=== PATIENT | male | born 1945 | race Caucasian/White ===

== ENCOUNTER → 2019-02-22 14:00 | Outpatient (CLI) | payer MEDICARE, OTHER, SELFPAY ==
[2019-02-22 14:12] LABS: Bacteria Urine None Seen; RBC Urine None Seen (0-5/HPF); WBC Urine None Seen (0-5/HPF)
[2019-02-22 14:57] LABS: Hemoglobin A1C% w Est Avg Glu 5.5 % (4.0-6.0)
[2019-02-22 15:16] LABS: Appearance Urine UA CLEAR; Bilirubin Urine UA NEGATIVE (NEGATIVE); Color Urine UA YELLOW; Glucose Urine UA NEGATIVE (Negative); Ketones Urine UA NEGATIVE (NEGATIVE); Leukocyte Esterase Urine UA NEGATIVE (NEGATIVE); Nitrite Urine UA NEGATIVE (Negative); Occult Blood Urine UA NEGATIVE (Negative); Protein Urine UA NEGATIVE (Negative); Specific Gravity Urine UA 1.015 (1.000-1.035); Urobilinogen Urine UA 0.2 E.U./dL (0.2); pH Urine UA 7.5 (4.5-8.0)
[2019-02-22 15:25] LABS: Culture Indicated Urine Cult Not Indicated; Urine Comments Microscopic Normal
== END ==
PROVIDERS: Visit Provider Orthopaedic Surgery
DX: Z01.818 Encounter for other preprocedural examination (principal); Z01.812 Encounter for preprocedural laboratory examination; N39.9 Disorder of urinary system, unspecified; Z13.1 Encounter for screening for diabetes mellitus; R73.9 Hyperglycemia, unspecified
CPT/HCPCS: 36415; 81001; 83036

== ENCOUNTER 2019-04-06 05:59 | Inpatient (IN) | payer MEDICARE, OTHER, SELFPAY ==
[2019-03-23 09:57] VITALS: BMI 31.1
[2019-04-06] VITALS (17 sets, daily range): BP systolic 137–187; BP diastolic 70–94; PULSE 62–90; RESP 9–17; TEMP 36.3–37.1; O2SAT 93–99; BMI 31.8
--- NOTE | 2019-04-06 06:41 | DI.RAD.S_ITS ---
PROCEDURE: XR KNEE RT 1TO2V INDICATIONS: post op right TKA TECHNIQUE: 2 view(s) of the knee acquired. COMPARISON: None. FINDINGS: Bones: Patient is status post knee joint arthroplasty. Hardware components are in expected positions. Visualized bony structures are intact. Soft tissues: Overlying postoperative changes are noted. IMPRESSION: Expected postsurgical change for right knee arthroplasty. Dictated by: Terri Arciniega MD, PhD on 04/06/2019 at 14:43 Approved by: Terri Arciniega MD, PhD on 04/06/2019 at 14:44
[2019-04-06] MEDS: CELECOXIB 200 MG CAPSULE PO (07:03)
[2019-04-06] MEDS: ACETAMINOPHEN 325 MG TABLET 975 MG PO (07:03)
[2019-04-06] MEDS: VANCOMYCIN 1,000 MG/200 ML PIGGYBACK 200 MG IV (07:03)
[2019-04-06] MEDS: PREGABALIN 75 MG CAPSULE PO (07:03)
[2019-04-06] MEDS: LACTATED RINGERS 1,000 ML 42 ML IV ×2 (07:10→08:43)
--- NOTE | 2019-04-06 07:37 | PM.PREOP ---
Pre-operative Note Interval Note History & Physical reviewed/Exam performed by Physician: Yes Changes to H&P: No
--- NOTE | 2019-04-06 07:37 | PM.OP.1 ---
Operative Date/Time/Diagnoses Date of procedure: 04/06/19 Time of procedure: 07:59 Pre-op diagnosis: Right knee osteoarthritis with a failed right knee medial compartment arthroplasty Post-op diagnosis: same Procedure & Clinicians Procedure: Revision right total knee arthroplasty Same procedure as scheduled: Yes Indications: The patient has had progressively worsening right knee pain with radiographic changes consistent with progressive patellofemoral and lateral compartment arthritis. He has a history of right knee medial compartment arthroplasty. Non-operative management has failed and the patient has requested total knee revision. The risks, benefits and alternatives to surgery were discussed with the patient prior to proceeding. Risks discussed included, but were not limited to, failure to relieve pain, stiffness, infection, nerve damage, deep venous thrombosis, pulmonary embolism, stroke, coma, heart attack, permanent paralysis and , as well as the potential need for eventual revision of the prosthetic. Surgeon: Shayy Morfin Telescope Operator: Yariel Velazquez Anesthesia Type: General and Spinal Operative Notes Findings: Severe right knee osteoarthritis on the lateral and patellofemoral joint, medial Uni no evidence of loosening, adequate bone, good stability Closure Type: primary Specimen(s): none sent Prosthetic devices, grafts, tissues, transplants, or devices: Morfin and Nephew Journey BCS 2 size 6 femur, size 6 tibia, +10 poly, 35 oval patella Applied: drain(s) Estimated Blood Loss (mL): 250 Blood products transfused: none Tourniquet time (min): 17 Procedure in detail: The patient was seen in the pre-operative area, where the patient identified the right knee as the operative site and this was marked with my initials. The patient received pre-operative antibiotics, and was taken to the operating room and placed on the operative table in the supine position. After satisfactory anesthesia, a realtime captioner out was performed. The right leg was encircled with a tourniquet about the proximal thigh, and the leg was prepared from the toes to the tourniquet with ChloroPrep in the usual fashion and draped through sterile drapes. The leg was elevated and exsanguinated with Eschmark bandage and the tourniquet inflated to [250] mmHg pressure. The knee was approached through an approximately 20 cm incision centered over the patella and carried into the knee through a medial parapatellar arthrotomy. A portion of the lateral meniscus was resected. Soft tissue was carefully mobilized around the patella the patella was measured with a caliper. Bone was resected from the patella and the patellar height was reconstituted with up an appropriate sized patellar component. A cover was then placed on the patella. A small amount of additional lateral meniscus was resected. The polyethylene was carefully removed from the medial complex unicompartment arthroplasty. Soft tissue was mobilized around the medial compartment arthroplasty and hand osteotomes were used to remove a portion of the cement. The distal femur was cut at 5?. A [+2] cut was used. A combination of the oscillating saw as well as multiple small hand tools and osteotomes was then used to carefully remove the medial femoral component. It looked like an appropriate distal femoral cut and the cut was made without difficulty. Oscillating saw was used to remove the tibial component which was carefully tamped out after did loosened from the proximal media tibia. An extramedullary guide was used for the tibial cut. 10 mm was resected off the least affected side.The tibia was prepared. The rotation was assessed. The patient was placed in extension residual medial and lateral meniscus as well as any residual bone was carefully resected. The tibial defect was assessed the medial cut was a skim cut off of the proximal medial tibia. There was not a large defect in the tibia and there was reasonable quality medial tibial bone. Hemostasis was achieved especially posteriorly. Additional local was injected into the posterior capsule. The extension gap was assessed and additional releases for gap balancing were performed as necessary. It was checked with the gap grounds/maintenance specialist. The rotation was assessed and the rotation was set based on gap balancing external rotation with a Quentin placed along the posterior medial femoral condyle to make up for the deficient portion of the posterior medial femoral condyle. Additional external rotation of about 4? was set. The femur measured a 6. Appropriate size femoral guide was placed on the distal femur and finishing cuts were made. There was no evidence of notching. The anterior, posterior and chamfer cuts were then made. The posterior osteophytes and soft tissues were then removed. The posterior capsule was injected with part of a mixture of 60 ml 0.25% Marcaine mixed with 20 ml Exparel for post operative pain control. The remainder of this mixture was injected into the capsule and subcutaneous tissues during cement curing.l tibial and femoral components were then placed and the knee placed through a range of motion. Range of motion was [0-130], with good stability throughout the range. The trials were then removed, and the tibia was finished. There was reasonable quality proximal tibia and I placed several additional drill holes in the sclerotic proximal medial tibial bone. All soft tissue was carefully curetted free from the underlying bone. There was good quality bone and it did not appear that either in extension or and augment was indicated. The bone was prepared with pulsatile lavage, and dried with a sponge. Cement was applied and the final prosthetics placed. Excess cement was removed during and after cement curing. A brief Betadine soak was performed. After confirming there was no extruded cement posteriorly, the final tibial insert was placed. The knee was copiously irrigated and the tourniquet deflated. Hemostasis was obtained with the Bovie. A drain was placed and brought out superolaterally. The capsule was closed with interrupted Vicryl suture. The subcutaneous layer was closed with barbed sutures, and the skin with a running 3-0 V-Lock suture and Surgical glue. An Aquacel Ag dressing was applied and the patient was taken to recovery having tolerated the procedure well. Complications: none Post-operative Condition: stable Disposition: Acute Care Plan for aftercare: The patient will be maintained on a standard total knee replacement protocol with weight bearing as tolerated. The patient will receive aspirin and sequential compression devices for DVT prophylaxis. The patient will be discharged home when safe for the home environment.
[2019-04-06] MEDS: CEFAZOLIN 2 GM/100 ML FROZ.PIGGY IV (08:15)
[2019-04-06] MEDS: TRANEXAMIC ACID 1,000 MG VIAL 2000 MG INJ ×2 (08:49→10:49)
[2019-04-06] MEDS: BUPIVACAINE 0.25% W/ EPI (PF) 10 ML VIAL 60 ML INJ (08:49)
[2019-04-06] MEDS: BUPIVACAINE LIPOSOME 266 MG/20 ML VIAL INJ (08:50)
--- NOTE | 2019-04-06 08:59 | SUR.OPER ---
Supine on padded OR bed. Pillow under head, arms secured on padded armboards <90 degree abduction. Safety belt across torso. Non-operative leg secured with tape over blanket over lower leg. Operative leg secured in DeMayo/Herminio positioner. Foam padded brace at thigh of operative leg.
[2019-04-06] MEDS: fentaNYL 100 MCG/2 ML INJ IV ×2 (11:13→11:20)
[2019-04-06] MEDS: HYDROMORPHONE 2 MG INJ IV ×2 (11:14→11:21)
--- NOTE | 2019-04-06 11:35 | SUR.PHASEI ---
REPORT CALLED TO DAX PATEL ON ACUTE CARE FLOOR. PT IN STABLE CONDITION, VSS. DRSG OBSERVED TO BE C/D/I. HEMAVAC REMAINS CLAMPED AT THIS TIME. PT TOLERATING ICE CHIPS WITHOUT ANY DIFFICULTLY. PT REPORTS PAIN IS TOLERABLE AT THIS TIME AND RATING PAIN 5/10 AT SURGICAL SITE.
[2019-04-06] MEDS: HYDRALAZINE 20 MG/ML VIAL 5 MG IV (11:46)
--- NOTE | 2019-04-06 11:57 | SUR.PHASEI ---
BEDSIDE REPORT GIVEN TO DAX SHORE AT THIS TIME. TRANSFERRED CARE OF PT TO DAX SHORE AT THIS TIME. PT IN STABLE CONDITION.
[2019-04-06] MEDS: OXYCODONE IR 5 MG TABLET PO ×2 (13:21→16:29)
[2019-04-06] MEDS: IBUPROFEN 400 MG TABLET PO (13:22)
[2019-04-06] MEDS: LACTATED RINGERS 1,000 ML 125 ML IV (13:51)
--- NOTE | 2019-04-06 13:53 | PC.NURSE ---
Pt to room 216 via bed from PACU. Pt oriented to room, call light, bed controls, and tv controls. Bed alarm on for safety. Pt agrees to call for assistance as needed. SCD's on and running.
--- NOTE | 2019-04-06 13:54 | SUR.PHASEI ---
Late note: Care assumed from Kimberly. pt's BP normalized after meds given by Kimberly. Pt tolerated juice. Pt transported up to room on room air by Adriana VERDUZCO and technology analyst. Pt left in stable condition.
--- NOTE | 2019-04-06 14:20 | PT.IIE ---
Current Diagnoses Unilateral primary osteoarthritis, right knee (04/06/19) Surgery Performed Operation Date: 04/06/19 07:45 Actual Procedures p Revision Medial Uni to Total Knee Arthroplasty(Right) - Shayy Morfin MD Surgical History (Last Updated 03/23/19 @ 10:42 by Nirmala Salinas, RN) H/O vasectomy (Acute) History of arthroplasty of right knee (Acute 02/15/14) History of bilateral cataract extraction (Acute) Hx of sinus surgery (Acute) Hx of tonsillectomy (Acute) Medical History (Last Updated 03/23/19 @ 10:41 by Nirmala Salinas, DAX) Borderline diabetic (Acute) Easy bruisability (Acute) GERD (gastroesophageal reflux disease) (Acute) History of coronary angiogram (Acute ~01/2019) HLD (hyperlipidemia) (Acute) HTN (hypertension) (Acute) Kidney stones (Acute ~2014) JESSIE on CPAP (Acute) Osteoarthritis (Acute) Pulmonary nodules (Acute 2014) SCC (squamous cell carcinoma) (Acute) Thinning of skin (Acute) Physical Therapy Inpatient Evaluation/Re-Eval M1 PT/OT-IP Prior Functional Status Start: 04/06/19 15:28 Freq: NEEDED Status: Active Protocol: Document 04/06/19 14:20 AB (Rec: 04/06/19 16:02 AB [email or web address]) Medical Review Prior Functional Status Medical History Reviewed Yes Communication able to make needs known Mobility and Gait pt stated that he is independent with all mobilities and ambulation without AD Social History Household Members spouse Living Arrangements House Number of Floors (Floors) Two Floors Number of Stairs To Enter/Railing? has no steps to enter from the garage and pt stays on the main level of the house Home Environment High Toilet,Walk in Shower, Built-In Shower Seat Home Equipment Hand Held Shower,Grab Bars Near Toilet,Grab Bars In Shower Employment Status Retired Additional Social History Comment pt has a standard walker and an adjustable bed M2 PT-IP Current Condition Start: 04/06/19 15:28 Freq: NEEDED Status: Active Protocol: Document 04/06/19 14:20 AB (Rec: 04/06/19 16:02 AB [email or web address]) Physical Therapy Current Condition Current Condition Evaluation Date 04/06/19 Treatment Diagnosis s/p R TKA; difficulty in walking Onset Date 04/06/2019 Weight Bearing Status Weight Bearing Status Weight Bear as Tolerated Allowed Weight Bearing Amount (enter % RLE WBAT or #) (%) M3 PT-IP Subjective Start: 04/06/19 15:28 Freq: NEEDED Status: Active Protocol: Document 04/06/19 14:20 AB (Rec: 04/06/19 16:02 AB [email or web address]) Subjective Physical Therapy Visit Type Type Initial Evaluation Visit Start Time 14:20 Visit Stop Time 15:29 Total Visit Minutes 69 Number of BRANCH CONTROLLER Visits 0 Physical Therapy Visit Comments Patient Comments pt agreeable to do PT Therapy Pain Assessment Pain When Pain Assessed At Rest Pain Present Pain Present Pain Reported Location right knee Intensity 4 Scale Used increases to 10/10 with weight bearing Pain Management Techniques Apply Cold,Distraction,Timing of Activity with Medications M4 PT-IP Mobility and Gait Start: 04/06/19 15:28 Freq: NEEDED Status: Active Protocol: Document 04/06/19 14:20 AB (Rec: 04/06/19 16:02 AB [email or web address]) PT-Bed Mobility Assessment Supine to Sit Supine to Sit Standby Assistance Sit to Supine Sit to Supine Standby Assistance Scooting Scooting to Edge of Bed Standby Assistance Scooting Up and Down in Bed Standby Assistance PT-Transfer Assessment Sit to and From Stand Sit to and from Stand Contact Guard Assistance,1 Person Assistance,Use of Upper Extremities Equipment Transfer Assistive Device Gait Belt,Front Wheeled Walker Orthotic/Prosthetic Devices or Brace: No Transfers Transfer Destination Toilet Transfer Technique ambulated using FWW Transfer Ability Level of Assist Standby Assistance,Contact Guard Assistance,1 Person Assistance Comments Mobility Comments BP supine: 136/70. pt requesting use the toilet. completed bed mobility supine to sit SBA. pt was able to sit on EOB SBA. pt completed sit to stand CGA and ambulated to the toilet CGA. pt was able to stand using FWW for support CGA while completing toileting. pt ambulated to the sink and was able to maintain standing using FWW for support while completing handwashing. pt ambulated to the EOB SBA to CGA using FWW. BP checked: 143/77. pt agreed to do more ambulation. ambulated in room using FWW SBA ~ 15 ft. nurse cane in to empty pt's drain and pt sat on EOB. pt does not have a FWW and has standard walker. walker adjusted and pt agreed to ambulate more using his standard walker. pt completed ambulation using standard walker SBA ~ 80 ft. pt went back to bed. completed sit to supine SBA. positioned pt in bed. call light and table placed within reach. Gait Assessment Gait Gait Assistance Required: Standby Assistance,Contact Guard Assist,1 Person Assist Distance (Feet) 80 Able to Maintain Weight Bearing Status Yes During Gait Assistive Devices Assistive Device Gait Belt,Front Wheeled Walker Orthotic/Prosthetic Devices or Brace: No Factors Limiting Gait Function Factors Limiting Gait Function Pain,Poor Balance,Poor Safety Awareness Comments Gait Comments pt ambulated in room using FWW initially with CGA but afterwards SBA. ambulated in the hallway using standard walker SBA. pls refer to mobility section for details. PT-Balance Assessment Sitting Balance and Reactions Static Sitting Balance Ability Normal Dynamic Sitting Balance Ability Normal Standing Balance and Reactions Static Standing Balance Ability Fair Dynamic Standing Balance Ability Fair Device Used FWW/standard FWW M5 PT-IP Objective Assessments Start: 04/06/19 15:28 Freq: NEEDED Status: Active Protocol: Document 04/06/19 14:20 AB (Rec: 04/06/19 16:02 AB [email or web address]) Orientation Orientation/Cognition Level of Alertness Alert Orientation Name,Age,Birthday,Month,Date, Year,Day of Week,Place, Situation Language Function Ability No Deficits Noted Safety Awareness Understands Safety Issues Memory Description No Deficits Noted Gross Range of Motion Lower Extremity ROM Assessment Right Impaired Impairments R knee flexion: ~ 70 deg R knee extension: lacking ~ 25 deg to neutral Strength Lower Extremity Strength Assessment Right Impaired Hip 4-/5 Knee 3+/5 Sensation Assessment Sensation Gross Sensation WNL Muscle Tone Muscle Tone WNL Yes M6 PT-IP Treatment Start: 04/06/19 15:28 Freq: NEEDED Status: Active Protocol: Document 04/06/19 14:20 AB (Rec: 04/06/19 16:02 AB [email or web address]) Physical Therapy Treatment Exercises Exercises Heel Slides Education Education Provided Precautions,Weight Bearing Status,Post-Op Packet,Safety M7 PT-IP Assessment and Plan Start: 04/06/19 15:28 Freq: NEEDED Status: Active Protocol: Document 04/06/19 14:20 AB (Rec: 04/06/19 16:02 AB [email or web address]) PT Summary Assessment and Plan Potential Rehabilitation Potential Good Status of Condition at Evaluation Stable Summary Impairments Pain,ROM,Strength,Balance, Coordination,Sensation,Tone, Cognition,Bed Mobility, Transfers,Gait,Activity Tolerance Assessment Summary pt requiring SBA to CGA using standard walker and plans to go home with spouse to assist him. pt is set up for outpt PT. pt may go home when medically stable. Goals Bed Mobility Goal Independent Transfer Goal Independent Gait Goal Independent Gait Distance 200 Other Goals increase ambulation using standard walker ~ 200 ft mod I Days to Meet Goals 3 Frequency of Treatment Frequency Of Treatment Twice a Day Treatment Plan Physical Therapy Treatment Plan Bed Mobility Training,Transfer Training,Gait Training, Therapeutic Exercise,Balance Retraining,Post Op Education, Discharge Planning,Hot or Cold Pack,Neuromuscular Re-ed, Coordination Retraining,Manual Therapy Other Recommendations and Next Treatment ambulation Focus Recommendations To Nursing Amount of Assist Needed 1 Person Assist Discharge Recommendations PT Discharge Recommendations Home with Assistance, Outpatient PT
--- NOTE | 2019-04-06 14:59 | PC.NURSE ---
Day shift- Drain was clamped for about 2 hours, unclamped at 1315. 90ml output from HV, sangenous output. Pt c/o pain in leg, medicated with oxy and ibuprofen as ordered and available. Working with PT. may want to d/c home tonight.
--- NOTE | 2019-04-06 16:49 | PC.NURSE ---
Lety shift discharge note: Patient awake, alert, and pleasant. VSS and afebrile. Up out of bed to BR, with FWW. Voiding. Hemovac discontinued. Discharge home as ordered, home with via private vehicle. Discussed importance of F/U with Dr. Morfin, PT therapy, home activity, dressing care, and new medications. Patient verbalized understanding of instructions.
--- NOTE | 2019-04-12 08:42 | CM.IDA ---
Discharge Planning/Care Management CM Discharge Assessment Start: 04/12/19 08:37 Freq: Status: Discharge Protocol: Document 04/12/19 08:37 RUSH (Rec: 04/12/19 08:42 RUSH [id number]) Discharge Planning Assessment Assigned Social Media Project Manager RJ Rosenthal DPOA/Assigned Designee Name Padmaja () Contact Information [phone] Advance Directives? Yes Advance Directives on File No History Provided By Patient,Medical Record Prior Living Arrangements House Household Members spouse Type of transporation used prior to Drives own vehicle admit Independent with ADL's Yes Is patient alert and oriented? Yes Patient/Family Preference OP PT Therapy Barriers to Discharge No Comment Pt is POD#1 from uni knee surgery w/Dr Morfin. PCP: Charisse Payer: [facility]/ [facility] Reviewed chart. Pt has a DC order in and PT has cleared pt for his expected DCP of returning home w/spouse to assist. No barriers identified to safe DC home w/family today. This EARRINGS FABRICATOR will remain available in case DC Needs or concerns arise. RJ Navas Discharge Plan Home Transportation Arrangement Family Referrals Initiated None needed Review Status In Process
== END 2019-04-06 16:53 | disposition home or self-care (01) | DRG 467 ==
PROVIDERS: Admitting Provider Orthopaedic Surgery; Visit Provider Orthopaedic Surgery
PROC: 0SRC0J9 Replacement of Right Knee Joint with Synthetic Substitute, Cemented, Open Approach (ICD-10-PCS; principal; 2019-04-06 07:45)
DX: M17.11 Unilateral primary osteoarthritis, right knee (principal); T84.092A Other mechanical complication of internal right knee prosthesis, initial encounter; G47.33 Obstructive sleep apnea (adult) (pediatric); I10 Essential (primary) hypertension; K21.9 Gastro-esophageal reflux disease without esophagitis; Z87.891 Personal history of nicotine dependence; Z96.651 Presence of right artificial knee joint
CPT/HCPCS: 73560; 87070; 87075; 87176; 87205; 97161; 97535; C1776; C9290; J0360; J0690; J1100; J1170; J2250; J2274; J2405; J2704; J3010

== ENCOUNTER → 2020-02-21 09:34 | Outpatient (CLI) | payer MEDICARE, OTHER, SELFPAY ==
[2019-04-06 13:30] VITALS: BMI 31.8
[2020-02-21 09:45] LABS: Bacteria Urine None Seen; RBC Urine None Seen (0-5/HPF)
[2020-02-21 10:24] LABS: Add Manual Diff / Slide Review NO; Basophils Absolute Auto 0 /uL (0-100); Basophils Percent Auto 0.4 % (0-2); Eosinophils Absolute Auto 100 /uL (0-450); Eosinophils Percent Auto 1.6 % (2-4); Hematocrit 45.2 % (41-53); Hemoglobin 14.9 g/dL (13.5-17.5); Lymphocytes Absolute Auto 1300 /uL (1100-4500); Lymphocytes Percent Auto 24.4 % (25-40); Mean Corpuscular HGB Conc 32.8 % (30-36); Mean Corpuscular Hemoglobin 31.4 PG (26-34); Mean Corpuscular Volume 95.6 fL (80-100); Monocytes Absolute Auto 600 /uL (0-900); Monocytes Percent Auto 10.8 % (3-14); Neutrophils Absolute Auto 3200 /uL (1500-7000); Neutrophils Percent Auto 62.8 % (50-75); Platelet Count 203 X10^3/uL (150-400); Red Blood Cell Count 4.73 X10^6/uL (4.5-5.9); Red Cell Distribution Width 13.5 % (11.6-14.8); White Blood Cell Count 5.1 X10^3/uL (4.5-11.0)
[2020-02-21 10:26] LABS: Hemoglobin A1C% w Est Avg Glu 6.1 % (4.0-6.0)
[2020-02-21 10:36] LABS: Appearance Urine UA CLEAR; Bilirubin Urine UA NEGATIVE (NEGATIVE); Color Urine UA YELLOW; Glucose Urine UA NEGATIVE (Negative); Ketones Urine UA NEGATIVE (NEGATIVE); Leukocyte Esterase Urine UA NEGATIVE (NEGATIVE); Nitrite Urine UA NEGATIVE (Negative); Occult Blood Urine UA NEGATIVE (Negative); Protein Urine UA NEGATIVE (Negative); Specific Gravity Urine UA 1.025 (1.000-1.035); Urobilinogen Urine UA 0.2 E.U./dL (0.2)
[2020-02-21 10:47] LABS: Culture Indicated Urine Specimen Cultured; Mucus Urine 3+ (Negative); WBC Urine 5-10/HPF (0-5/HPF)
[2020-02-21 11:05] LABS: BUN Creatinine Ratio 26.3 (6-22); Blood Urea Nitrogen 26 mg/dL (9-20); Calcium 9.6 mg/dL (8.4-10.2); Carbon Dioxide 31 mmol/L (22-32); Chloride 102 mmol/L (98-107); Estimated Glomerular Filt Rate > 60.0 mL/min (>60); Glucose 100 mg/dL (80-110); HEMOLYSIS < 15 (0-50); Potassium 4.5 mmol/L (3.4-5.1); Sodium 138 mmol/L (137-145)
== END ==
PROVIDERS: Referring Provider Orthopaedic Surgery; Visit Provider Orthopaedic Surgery
DX: Z01.818 Encounter for other preprocedural examination (principal); R73.9 Hyperglycemia, unspecified; Z01.812 Encounter for preprocedural laboratory examination; N39.0 Urinary tract infection, site not specified
CPT/HCPCS: 36415; 80048; 81001; 83036; 85025; 87086; 93005; 93010

== ENCOUNTER → 2020-03-18 09:57 | Outpatient (CLI) | payer MEDICARE, OTHER, SELFPAY ==
[2019-04-06 13:30] VITALS: BMI 31.8
[2020-03-18 11:26] LABS: COVID19 -Nasal RAPID Negative (Negative)
== END ==
PROVIDERS: Visit Provider Physician Assistant
DX: Z01.812 Encounter for preprocedural laboratory examination (principal); Z20.822 Contact with and (suspected) exposure to COVID-19
CPT/HCPCS: 87635; C9803

== ENCOUNTER 2020-03-19 06:14 | Day surgery (SDC) | payer MEDICARE, OTHER, SELFPAY ==
[2019-04-06 13:30] VITALS: BMI 31.8
[2020-03-14 13:58] VITALS: BMI 33.7
[2020-03-19] VITALS (8 sets, daily range): BP systolic 144–165; BP diastolic 71–89; PULSE 63–80; RESP 12–20; TEMP 36.3–37; O2SAT 92–99; BMI 32.1
--- NOTE | 2020-03-19 | DI.RAD.S_ITS ---
PROCEDURE: XR KNEE LT 1TO2V INDICATIONS: POST-OP TOTAL LEFT KNEE TECHNIQUE: 2 view(s) of the knee acquired. COMPARISON: [facility] ERICA Schneider, XR KNEE ARTHRITIC SERIES BI, 01/03/2020, 8:44. [facility] [place], CR, XR KNEE ARTHRITIC SERIES RT, 04/20/2019, 16:19. FINDINGS: Bones: Patient is status post knee joint arthroplasty. Hardware components are in expected positions. Visualized bony structures are intact. Soft tissues: Overlying postoperative changes are noted. IMPRESSION: Total knee arthroplasty with prosthesis in anatomic alignment. Dictated by: Avril Sheehan M.D. on 03/19/2020 at 17:12 Approved by: Avril Sheehan M.D. on 03/19/2020 at 17:12
[2020-03-19] MEDS: LACTATED RINGERS 1,000 ML 42 ML IV ×2 (07:00→10:39)
--- NOTE | 2020-03-19 07:45 | PM.PREOP ---
Pre-operative Note Interval Note History & Physical reviewed/Exam performed by Physician: Yes Changes to H&P: No
--- NOTE | 2020-03-19 07:47 | P.OP_ITS ---
Operative Date/Time/Diagnoses Date of procedure: 03/19/20 Time of procedure: 07:59 Pre-op diagnosis: left knee OA Post-op diagnosis: same Procedure & Clinicians Procedure: left total knee Same procedure as scheduled: Yes Indications: The patient has had progressively worsening left knee pain with radiographic changes consistent with arthritis. Non-operative management has failed and the patient has requested total knee replacement. The risks, benefits and alternatives to surgery were discussed with the patient prior to proceeding. Risks discussed included, but were not limited to, failure to relieve pain, stiffness, infection, nerve damage, deep venous thrombosis, pulmonary embolism, stroke, coma, heart attack, permanent paralysis and , as well as the potential need for eventual revision of the prosthetic. Surgeon: Shayy Morfin Groover Operator: Marissa Quinones Anesthesia Type: General Operative Notes Findings: Severe left knee osteoarthritis, good stability Closure Type: primary Specimen(s): none sent Prosthetic devices, grafts, tissues, transplants, or devices: Morfin and nephew BCS 2 size 6 femur, size 6 tibia, +9 poly, 35 oval patella Applied: drain(s) Estimated Blood Loss (mL): 200 Blood products transfused: none Tourniquet time (min): 92 Procedure in detail: The patient was seen in the pre-operative area, where the patient identified the left knee as the operative site and this was marked with my initials. The patient received pre-operative antibiotics, and was taken to the operating room and placed on the operative table in the supine position. After satisfactory anesthesia, a multimedia production assistant out was performed. The left leg was encircled with a tourniquet about the proximal thigh, and the leg was prepared from the toes to the tourniquet with ChloroPrep in the usual fashion and draped through sterile drapes. The leg was elevated and exsanguinated with Eschmark bandage and the tourniquet inflated to [250] mmHg pressure. The knee was approached through an approximately 18 cm incision centered over the patella and carried into the knee through a medial parapatellar arthrotomy. A portion of the medial and lateral meniscus was resected. Soft tissue was carefully mobilized around the patella the patella was measured with a caliper. Bone was resected from the patella and the patellar height was reconstituted with up an appropriate sized patellar component. A cover was then placed on the patella. A small amount of additional medial and lateral meniscus was resected. The distal femur was cut at 5?. A [+2] cut was used. It looked like an appropriate distal femoral cut and the cut was made without difficulty. An extramedullary guide was used for the tibial cut. 10 mm was resected off the least affected side.The tibia was prepared. The rotation was assessed. The patient was placed in extension residual medial and lateral meniscus as well as any residual bone was carefully resected. [No] additional tibia was resected. Hemostasis was achieved especially posteriorly. Additional local was injected into the posterior capsule. The extension gap was assessed and additional releases for gap balancing were performed as necessary. It was checked with the gap engraver pantograph. The femoral component was trial was placed and the notch was finished. The rotation was assessed and the appropriate size femoral guide was placed on the distal femur and finishing cuts were made. There was no evidence of notching. The anterior, posterior and chamfer cuts were then made. The posterior osteophytes and soft tissues were then removed. The posterior capsule was injected with part of a mixture of 60 ml 0.25% Marcaine mixed with 20 ml Exparel for post operative pain control. The remainder of this mixture was injected into the capsule and subcutaneous tissues during cement curing. The tibial and femoral components were then placed and the knee placed through a range of motion. Range of motion was [0-130], with good stability throughout the range. The trials were then removed, and the tibia was finished. The bone was prepared with pulsatile lavage, and dried with a sponge. Cement was applied and the final prosthetics placed. Excess cement was removed during and after cement curing. A brief Betadine soak was performed. After confirming there was no extruded cement posteriorly, the final tibial insert was placed. The knee was copiously irrigated and the tourniquet deflated. Hemostasis was obtained with the Bovie. A drain was placed and brought out superolaterally. The capsule was closed with interrupted nonabsorbable suture. The subcutaneous layer was closed with barbed sutures, and the skin with a running 3-0 V-Lock suture and Surgical glue. An Aquacel Ag dressing was applied and the patient was taken to recovery having tolerated the procedure well. Complications: none Post-operative Condition: stable Disposition: Acute Care Plan for aftercare: The patient will be maintained on a standard total knee replacement protocol with weight bearing as tolerated. The patient will receive Lovenox and sequential compression devices for DVT prophylaxis. The patient will be discharged home when safe for the home environment.
[2020-03-19] MEDS: CEFAZOLIN 2 GM/100 ML FROZ.PIGGY IV ×2 (07:50→16:20)
[2020-03-19] MEDS: VANCOMYCIN 1,000 MG/200 ML PIGGYBACK 200 MG IV (08:05)
[2020-03-19] MEDS: TRANEXAMIC ACID 1,000 MG VIAL 1000 MG INJ ×2 (08:20→10:10)
--- NOTE | 2020-03-19 08:28 | SUR.OPER ---
Supine on padded OR bed, head on pillow, arms secured on padded arm boards at <90 degrees abduction, legs uncrossed, safety belt at abdomen, tape over blanket over right lower leg. Left leg sterile draped in demayo positioner under the control of the surgeon.
[2020-03-19] MEDS: BUPIVACAINE LIPOSOME 266 MG/20 ML VIAL INJ (08:34)
[2020-03-19] MEDS: BUPIVACAINE 0.25% W/ EPI 30 ML VIAL 60 ML INJ (08:34)
[2020-03-19] MEDS: SODIUM CHLORIDE IRRIG SOLUTION 250 ML, POVIDONE-IODINE SPONGE STICKS 1 APPLIC IRR (08:35)
[2020-03-19] MEDS: fentaNYL 100 MCG/2 ML INJ IV (11:07)
[2020-03-19] MEDS: OXYCODONE IR 5 MG TABLET PO ×3 (11:15→16:22)
[2020-03-19] MEDS: LACTATED RINGERS 1,000 ML 100 ML IV (12:30)
[2020-03-19] MEDS: IBUPROFEN 400 MG TABLET PO ×2 (12:31→16:22)
--- NOTE | 2020-03-19 14:30 | PT.IIE ---
Current Diagnoses Unilateral primary osteoarthritis, left knee (03/19/20) Surgery Performed Operation Date: 03/19/20 07:45 Actual Procedures p Total Knee Arthroplasty(Left) - Shayy Morfin MD Surgical History (Last Updated 03/23/19 @ 10:42 by Nirmala Salinas RN) H/O vasectomy History of arthroplasty of right knee (02/15/14) History of bilateral cataract extraction Hx of sinus surgery Hx of tonsillectomy Medical History (Last Updated 03/23/19 @ 10:41 by Nirmala Salinas RN) Borderline diabetic Easy bruisability GERD (gastroesophageal reflux disease) History of coronary angiogram (~01/2019) HLD (hyperlipidemia) HTN (hypertension) Kidney stones (~2014) JESSIE on CPAP Osteoarthritis Pulmonary nodules (2014) SCC (squamous cell carcinoma) Thinning of skin Physical Therapy Inpatient Evaluation/Re-Eval M1 PT/OT-IP Prior Functional Status Start: 03/19/20 13:45 Freq: NEEDED Status: Active Protocol: Document 03/19/20 14:28 AW (Rec: 03/19/20 14:53 AW [id number]) Medical Review Prior Functional Status Medical History Reviewed Yes Communication WNL. Pt is an effective verbal communicator. Mobility and Gait Pt is independent with all mobility and walks up to 2.5 miles daily. He has history of R unicompartmental arthroplasty converted to TKA one year ago. Activities of Daily Living and IADL's Independent with all I/ADL's. Pt is an active limo driver. Social History Household Members spouse Living Arrangements House Number of Floors (Floors) Two Floors Number of Stairs To Enter/Railing? House is a split-level. Pt enters through the garage and then climbs 7 steps with R rail + landing + 7 steps with L rail. Home Environment High Toilet,Walk in Shower, Built-In Shower Seat Home Equipment Front Wheel Walker,Straight Cane,Crutches,Grab Bars Near Toilet,Grab Bars In Shower Employment Status Retired Additional Social History Comment Pt has an adjustable bed. He lives in [place] with his who is also retired. She will be available and able to assist as needed. M2 PT-IP Current Condition Start: 03/19/20 13:45 Freq: NEEDED Status: Active Protocol: Document 03/19/20 14:28 AW (Rec: 03/19/20 14:53 AW [id number]) Physical Therapy Current Condition Current Condition Evaluation Date 03/19/20 Treatment Diagnosis L TKA; difficulty in walking Onset Date 03/19/20 Weight Bearing Status Weight Bearing Status Weight Bear as Tolerated M3 PT-IP Subjective Start: 03/19/20 13:45 Freq: NEEDED Status: Active Protocol: Document 03/19/20 14:28 AW (Rec: 03/19/20 14:53 AW [id number]) Subjective Physical Therapy Visit Type Type Initial Evaluation Visit Start Time 13:54 Visit Stop Time 14:28 Total Visit Minutes 34 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 Therapy Pain Assessment Pain When Pain Assessed During Mobility Pain Present Pain Present Pain Reported Location right knee Intensity 5 Scale Used Numeric (0 - 10) Pain Management Techniques Apply Cold,Timing of Activity with Medications M4 PT-IP Mobility and Gait Start: 03/19/20 13:45 Freq: NEEDED Status: Active Protocol: Document 03/19/20 14:28 AW (Rec: 03/19/20 14:53 AW [id number]) PT-Bed Mobility Assessment Supine to Sit Supine to Sit Standby Assistance Scooting Scooting to Edge of Bed Standby Assistance PT-Transfer Assessment Sit to and From Stand Sit to and from Stand Standby Assistance Equipment Transfer Assistive Device Gait Belt,Front Wheeled Walker Orthotic/Prosthetic Devices or Brace: No Transfers Transfer Destination Chair,Toilet Transfer Technique Stand Step Pivot Transfer Ability Level of Assist Standby Assistance,Contact Guard Assistance,1 Person Assistance,Use of Upper Extremities Comments Mobility Comments Pt was reclined in the bed as PT arrived. BP was 145/68 HR 59. Pt had minimal pain complaint at rest. With HOB flat, he completed supine to sit SBA and was able to lift his operative leg without assist. He denied lightheadedness or nausea. He stood from the bed raised 2 ( to approximate his bed at home ) SBA and used the FWW to ambulate around the unit 90 feet to the stairs and 90 feet back SBA. On return to the room, he transferred to the toilet with heavy use of right -side grab bar CGA and then ambulated with FWW to the chair, transferring SBA. Pt was positioned with call light and all needs in reach. Gait Assessment Gait Gait Assistance Required: Standby Assistance Distance (Feet) 90 Able to Maintain Weight Bearing Status Yes During Gait Assistive Devices Assistive Device Gait Belt,Front Wheeled Walker Orthotic/Prosthetic Devices or Brace: No Gait Deviations General Gait Pattern Antalgic,Decreased Stride Length,Decreased Feet Clearance,Step-to Gait Factors Limiting Gait Function Factors Limiting Gait Function Decreased Activity Tolerance, Decreased Sensation,Decreased Strength,Pain Comments Gait Comments 90' x 2 with FWW SBA. Pt responded well to cues to keep walker closer to his trunk and maintained safe positioning. Stair Climbing Assessment Evaluation Level of Assist On Stairs Standby Assistance Devices Stair Climbing Assistive Devices Left Railing,Right Railing Technique/Endurance Stair Climbing Direction Ascend and Descend Stair Climbing Technique Step to Step Number of Steps Climbed 3 Query Text: Stair Climbing Set # Repetitions (reps) 2 Comments Stair Climbing Comments Stairs completed with unilateral rail SBA. PT-Balance Assessment Sitting Balance and Reactions Static Sitting Balance Ability Normal Dynamic Sitting Balance Ability Normal Standing Balance and Reactions Static Standing Balance Ability Good Dynamic Standing Balance Ability Good Device Used FWW M5 PT-IP Objective Assessments Start: 03/19/20 13:45 Freq: NEEDED Status: Active Protocol: Document 03/19/20 14:28 AW (Rec: 03/19/20 14:53 AW [id number]) Orientation Orientation/Cognition Level of Alertness Alert Orientation Name,Day of Week,Place, Situation Language Function Ability No Deficits Noted Safety Awareness Understands Safety Issues Memory Description No Deficits Noted Gross Range of Motion Lower Extremity ROM Assessment Left Impaired Strength Lower Extremity Strength Assessment Left Impaired Comments Strength Comments RLE grossly 5/5. Coordination Assessment Gross Coordination Gross Coordination WNL Sensation Assessment Sensation Gross Sensation Right LE Impaired,Left LE Impaired Light Touch Impaired Comments Sensation Comments Slight numbness noted proximal to knees bilaterally. Muscle Tone Muscle Tone WNL Yes M6 PT-IP Treatment Start: 03/19/20 13:45 Freq: NEEDED Status: Active Protocol: Document 03/19/20 14:28 AW (Rec: 03/19/20 14:53 AW [id number]) Physical Therapy Treatment Exercises Exercises Ankle Pumps,Quad Sets,Heel Slides,Passive Knee Extension Hang Education Education Provided Precautions,Weight Bearing Status,Post-Op Packet,Safety Other Treatments Other Treatment Performed Provided education on role of PT, plan of care, weightbearing status, safe use of FWW, and rationale for continued use of FWW until evaluated by outpatient PT. M7 PT-IP Assessment and Plan Start: 03/19/20 13:45 Freq: NEEDED Status: Active Protocol: Document 03/19/20 14:28 AW (Rec: 03/19/20 14:53 AW [id number]) PT Summary Assessment and Plan Potential Rehabilitation Potential Excellent Status of Condition at Evaluation Stable Summary Impairments Pain,ROM,Strength,Balance, Sensation,Bed Mobility, Transfers,Gait Assessment Summary Kiko is a 74 yo man seen for PT evaluation on POD0 following L TKA. He rehabbed satisfactorily following R uni to TKA conversion one year ago. He is independent in all regards at baseline. On evaluation, he required SBA for all mobility except for CGA needed for toilet transfer on standard height toilet. Pt has grab bars and ADA height toilet at home. PT anticipates this pt will be safe to discharge home with assist and outpatient PT once medically cleared. Goals Bed Mobility Goal Independent Transfer Goal Independent,Front Wheeled Walker Gait Goal Independent,Front Wheel Walker Gait Distance 200 Other Goals - up/down 7 steps with unilateral rail IND Days to Meet Goals 2 Frequency of Treatment Frequency Of Treatment Twice a Day Treatment Plan Physical Therapy Treatment Plan Bed Mobility Training,Transfer Training,Gait Training, Therapeutic Exercise,Balance Retraining,Post Op Education, Discharge Planning,Hot or Cold Pack Recommendations To Nursing Amount of Assist Needed Standby Assistance Discharge Recommendations PT Discharge Recommendations Home with Assistance, Outpatient PT Transportation Needs at Discharge Private Vehicle
[2020-03-19] MEDS: ACETAMINOPHEN 325 MG TABLET 650 MG PO (16:20)
[2020-03-19] MEDS: PANTOPRAZOLE 40 MG TABLET PO (16:21)
--- NOTE | 2020-03-19 16:33 | PC.NURSE ---
Addendum entered by Ayana Kee R.N. 03/19/20 17:52: Dr. Morfin here to see pt dc orders written-DC instructions given written and verbal. home private vehicle with . Original Note: pt up in chair aox3 c/o left knee surgcial pain 08/22 medicated ice on anxiously awaiting dc home.
== END 2020-03-19 17:50 | disposition home or self-care (01) ==
LOC: OR 06:18 → AC 11:45
PROVIDERS: Referring Provider Orthopaedic Surgery; Visit Provider Orthopaedic Surgery
PROC: 0SRD0JZ Replacement of Left Knee Joint with Synthetic Substitute, Open Approach (ICD-10-PCS; CPT 27447; principal; 2020-03-19 07:45)
DX: M17.12 Unilateral primary osteoarthritis, left knee (principal); G47.30 Sleep apnea, unspecified; I10 Essential (primary) hypertension; K21.9 Gastro-esophageal reflux disease without esophagitis; E66.9 Obesity, unspecified; Z68.33 Body mass index [BMI] 33.0-33.9, adult
CPT/HCPCS: 27447; 73560; 97116; 97161; C1776; C9290; J0690; J1100; J2250; J2405; J2704; J3010

== ENCOUNTER → 2022-02-10 10:27 | Outpatient (CLI) | payer MEDICARE, OTHER, SELFPAY ==
[2020-03-19 12:03] VITALS: BMI 32.1
[2022-02-10 12:13] LABS: COVID19 -Nasal RAPID Negative (Negative)
== END ==
PROVIDERS: Visit Provider Surgery
DX: Z01.812 Encounter for preprocedural laboratory examination (principal); Z20.822 Contact with and (suspected) exposure to COVID-19
CPT/HCPCS: 87635; C9803

== ENCOUNTER 2022-02-11 12:18 | Day surgery (SDC) | payer MEDICARE, OTHER, SELFPAY ==
[2020-03-19 12:03] VITALS: BMI 32.1
[2022-02-11] VITALS (8 sets, daily range): BP systolic 113–163; BP diastolic 56–74; PULSE 49–70; RESP 12–97; TEMP 36.3–37.1; O2SAT 87–100; BMI 29.5
[2022-02-11] MEDS: SODIUM CHLORIDE 0.9% 1,000 ML 100 ML IV (12:44)
--- NOTE | 2022-02-11 13:10 | PM.OP.COLON ---
Operative Date/Time/Diagnoses Date of procedure: 02/11/22 Pre-op diagnosis: See indication and findings Procedure & Clinicians Study performed: Colonoscopy Indications: Colorectal cancer screening Surgeon: Yuri Painter Procedure Notes Procedure in detail: After informed consent was obtained the patient was placed in left lateral decubitus position. The video colonoscope was introduced the rectum slowly advanced. This was easily passed the cecum. Preparation was good. On slow withdrawal mucosa was carefully examined. The scope was removed. Patient tolerated procedure well. Blood loss none Complications none Sedation mac Findings 1. Scattered sigmoid diverticulosis 2. Otherwise negative colonoscopy to cecum Mr. Wise has had 1 previous colonoscopy. At his age he may benefit from 1 more colonoscopy at age 80-80 for if in excellent health
== END 2022-02-11 13:59 | disposition home or self-care (01) ==
PROVIDERS: PCP Family Medicine; Referring Provider Internal Medicine Gastroenterology; Visit Provider Internal Medicine Gastroenterology
PROC: 0DJD8ZZ Inspection of Lower Intestinal Tract, Via Natural or Artificial Opening Endoscopic (ICD-10-PCS; CPT 45378; principal; 2022-02-11 13:30)
DX: Z12.11 Encounter for screening for malignant neoplasm of colon (principal); K57.30 Diverticulosis of large intestine without perforation or abscess without bleeding
CPT/HCPCS: G0121; J2704

== ENCOUNTER → 2024-05-24 11:48 | Outpatient (CLI) | payer MEDICARE, OTHER, SELFPAY ==
[2020-03-19 12:03] VITALS: BMI 32.1
--- NOTE | 2024-05-24 12:07 | EKG_ITS ---
[place] [id number] [place] [id number] Test Date: 2024-05-24 Pat Name: Chivo Lipscomb Department: [facility] Room: Gender: Male Membership Administrator: LUIS : 1945 Requested By: Order Number: [id number] Reading MD: Oscar Dennis Measurements Intervals [place] Rate: 85 P: 53 WY: 174 QRS: -4 QRSD: 82 T: 55 QT: 360 QTc: 428 Interpretive Statements Sinus rhythm with premature atrial complexes with aberrant conduction Electronically Signed On 05-27-2024 18:28:21 PDT by Oscar Dennis
[2024-05-24 12:53] LABS: HEMOLYSIS < 15 (0-50); Potassium 4.8 mmol/L (3.4-5.1)
== END ==
LOC: RESP 11:49
PROVIDERS: PCP Physician Assistant; Referring Provider Podiatrist; Visit Provider Podiatrist
DX: Z01.818 Encounter for other preprocedural examination (principal)
CPT/HCPCS: 36415; 84132; 93005

== ENCOUNTER → 2024-10-23 08:04 | Outpatient (CLI) | payer OTHER, SELFPAY ==
[2020-03-19 12:03] VITALS: BMI 32.1
[2024-10-23 08:40] LABS: Appearance Urine UA CLEAR; Bilirubin Urine UA NEGATIVE (NEGATIVE); Color Urine UA YELLOW; Glucose Urine UA NEGATIVE (Negative); Ketones Urine UA NEGATIVE (NEGATIVE); Leukocyte Esterase Urine UA NEGATIVE (NEGATIVE); Nitrite Urine UA NEGATIVE (Negative); Occult Blood Urine UA NEGATIVE (Negative); Protein Urine UA NEGATIVE (Negative); Specific Gravity Urine UA 1.010 (1.000-1.035); Urobilinogen Urine UA 1.0 E.U./dL (0.2); pH Urine UA 6.5 (4.5-8.0)
[2024-10-23 09:13] LABS: Alanine Aminotransferase 14 IU/L (<50); Albumin 4.1 g/dL (3.5-5.0); Albumin Globulin Ratio 1.6 (1.0-2.8); Alkaline Phosphatase 54 U/L (38-126); Blood Urea Nitrogen 31 mg/dL (9-20); Calcium 9.1 mg/dL (8.4-10.2); Carbon Dioxide 30 mmol/L (22-32); Chloride 103 mmol/L (98-107); Estimated Glomerular Filt Rate > 60 mL/min (>60); Globulin 2.5 g/dL (1.7-4.1); Glucose 106 mg/dL (70-99); HEMOLYSIS < 15 (0-50); Potassium 4.4 mmol/L (3.4-5.1); Sodium 139 mmol/L (137-145); Total Protein 6.6 g/dL (6.3-8.2)
== END ==
PROVIDERS: PCP Physician Assistant; Referring Provider Chiropractor; Visit Provider Chiropractor
DX: N18.9 Chronic kidney disease, unspecified (principal)
CPT/HCPCS: 36415; 80053; 81003